=== PATIENT | female | born 1930 | race African-American/Black ===

== ENCOUNTER → 2017-12-03 | Outpatient (CLI) | payer OTHER | END | disposition home or self-care (01) | LOC: US 10:52 | DX: I65.21 Occlusion and stenosis of right carotid artery (principal); R09.89 Other specified symptoms and signs involving the circulatory and respiratory systems; R60.0 Localized edema | CPT/HCPCS: 93882; 93971 ==

== ENCOUNTER → 2017-12-13 | Outpatient (CLI) | payer OTHER ==
[2017-12-13] MEDS: REGADENOSON 0.4 MG/5 ML DISP.SYRIN. IV (10:05)
== END | disposition home or self-care (01) ==
LOC: NM 08:18
DX: R06.09 Other forms of dyspnea (principal); I73.9 Peripheral vascular disease, unspecified; I12.9 Hypertensive chronic kidney disease with stage 1 through stage 4 chronic kidney disease, or unspecified chronic kidney disease; N18.9 Chronic kidney disease, unspecified; Z99.2 Dependence on renal dialysis; Z88.0 Allergy status to penicillin
CPT/HCPCS: 78452; 93017; 93306; 96374; 96375; 96376; A9500; J2785

== ENCOUNTER 2017-12-16 08:16 | Observation (INO) | payer OTHER ==
[~2017-12-16 08:16] MED LIST: IODIXANOL 320 MG/ML 100 ML VIAL.
[2017-12-16 09:03] LABS: HEMATOCRIT 33.8 % (36.0-47.0); HEMOGLOBIN 11.1 g/dL (12.0-15.5); MEAN CORPUSCULAR HEMOGLOBIN 29 pg (25-35); MEAN CORPUSCULAR HGB CONC 33 g/dL (31-37); MEAN CORPUSCULAR VOLUME 88 fL (79-100); PLATELET COUNT 168 x10^3/uL (140-400); RED BLOOD COUNT 3.83 x10^6/uL (3.50-5.40); RED CELL DISTRIBUTION WIDTH 16.8 % (11.5-14.5); WHITE BLOOD COUNT 4.5 x10^3/uL (4.0-11.0)
[2017-12-16 09:14] LABS: ANION GAP 13 (6-14); BLOOD UREA NITROGEN 15 mg/dL (7-20); CALCIUM 9.6 mg/dL (8.5-10.1); CARBON DIOXIDE 23 mmol/L (21-32); CHLORIDE 109 mmol/L (98-107); CREATININE 1.2 mg/dL (0.6-1.0); GFR 51.7; GLUCOSE 92 mg/dL (70-99); POTASSIUM 3.9 mmol/L (3.5-5.1); SODIUM 145 mmol/L (136-145)
[2017-12-16 09:15] LABS: INR 1.2 (0.8-1.1); PARTIAL THROMBOPLASTIN TIME 28 SEC (24-38); PROTHROMBIN TIME PATIENT 14.3 SEC (11.7-14.0)
[2017-12-16] MEDS ORDERED: LIDOCAINE 2% 20 ML VIAL. (09:49)
[2017-12-16] MEDS ORDERED: fentaNYL PF VIAL 100 MCG/2 ML VIAL ×2 (10:09→10:58)
[2017-12-16] MEDS ORDERED: MIDAZOLAM HCL/PF 2 MG/2 ML VIAL. ×2 (10:09→10:59)
[2017-12-16] MEDS ORDERED: hydrALAZINE 20 MG/ML VIAL. (10:27)
[2017-12-16] MEDS ORDERED: HEPARIN for IV BOLUS 10,000 UNIT/10 ML VIAL. (10:43)
[2017-12-16] MEDS ORDERED: CONTRAST GIVEN MC (11:15)
[2017-12-16] MEDS ORDERED: CLOPIDOGREL BISULFATE 75 MG TABLET (11:20)
[2017-12-16] MEDS: CLOPIDOGREL BISULFATE 75 MG TABLET PO ×2 (11:33→14:48)
[2017-12-16] MEDS: IODIXANOL 320 MG/ML 100 ML VIAL. IART (11:34)
[2017-12-16] MEDS: LIDOCAINE 2% 20 ML VIAL. IJ (11:34)
[2017-12-16] MEDS: hydrALAZINE 20 MG/ML VIAL. IVP (11:35)
[2017-12-16] MEDS: HEPARIN for IV BOLUS 10,000 UNIT/10 ML VIAL. IV (11:36)
[2017-12-16] MEDS: fentaNYL PF VIAL 100 MCG/2 ML VIAL IV ×2 (11:37→13:45)
[2017-12-16] MEDS: MIDAZOLAM HCL/PF 2 MG/2 ML VIAL. IV (11:37)
[2017-12-16] MEDS ORDERED: MAGNESIUM HYDROXIDE 2,400 MG/30 ML ORAL.SUSP. PO (13:45)
[2017-12-16] MEDS: LABETALOL 20 MG/4 ML DISP.SYRIN. IVP ×2 (14:18→21:03)
[2017-12-16] MEDS: FERROUS SULFATE 325 MG TABLET. PO ×2 (15:00→21:03)
[2017-12-16] MEDS: amLODIPine BESYLATE 2.5 MG TABLET PO (15:00)
[2017-12-16] MEDS: ASPIRIN ENTERIC COATED 81 MG TABLET.DR. PO (15:00)
[2017-12-16] MEDS: METOPROLOL SUCC 24HR ER 50 MG TAB.ER.24H. PO (15:00)
[2017-12-16] MEDS: IV 1/2 NORMAL SALINE 1,000 ML IV (15:25)
[2017-12-16] MEDS: ENOXAPARIN 40 MG/0.4 ML SYRINGE. SQ (16:00)
[2017-12-16] MEDS: NYSTATIN 100,000 UNITS/ML 5 ML ORAL.SUSP. SWSW ×2 (16:37→21:02)
[2017-12-16] MEDS: ATORVASTATIN CALCIUM 20 MG TABLET PO (21:03)
[2017-12-17] MEDS: ACETAMINOPHEN 325 MG TABLET. PO (00:11)
[2017-12-17] MEDS: IV 1/2 NORMAL SALINE 1,000 ML IV ×2 (05:20→09:43)
[2017-12-17 05:29] LABS: ADD MAN DIFF? NO
[2017-12-17 05:42] LABS: BASO % 1 % (0-3); EOS # 0.1 x10^3/uL (0.0-0.7); EOS % 2 % (0-3); HEMATOCRIT 29.2 % (36.0-47.0); HEMOGLOBIN 9.8 g/dL (12.0-15.5); LYMPH # 0.8 x10^3/uL (1.0-4.8); LYMPH % 16 % (24-48); MEAN CORPUSCULAR HEMOGLOBIN 29 pg (25-35); MEAN CORPUSCULAR HGB CONC 33 g/dL (31-37); MEAN CORPUSCULAR VOLUME 88 fL (79-100); MONO # 0.5 x10^3/uL (0.0-1.1); MONO % 11 % (0-9); NEUT # 3.4 x10^3uL (1.8-7.7); NEUT % 71 % (31-73); PLATELET COUNT 147 x10^3/uL (140-400); RED BLOOD COUNT 3.33 x10^6/uL (3.50-5.40); RED CELL DISTRIBUTION WIDTH 17.2 % (11.5-14.5); WHITE BLOOD COUNT 4.8 x10^3/uL (4.0-11.0)
[2017-12-17 05:59] LABS: ALBUMIN 2.4 g/dL (3.4-5.0); ALBUMIN/GLOBULIN RATIO 0.6 (1.0-1.7); ALK PHOS 64 U/L (46-116); ALT (SGPT) 13 U/L (14-59); ANION GAP 9 (6-14); AST (SGOT) 17 U/L (15-37); BLOOD UREA NITROGEN 17 mg/dL (7-20); BUN/CREATININE RATIO 13 (6-20); CALCIUM 8.2 mg/dL (8.5-10.1); CARBON DIOXIDE 23 mmol/L (21-32); CHLORIDE 108 mmol/L (98-107); CREATININE 1.3 mg/dL (0.6-1.0); GFR 47.1; GLUCOSE 92 mg/dL (70-99); POTASSIUM 3.3 mmol/L (3.5-5.1); SODIUM 140 mmol/L (136-145); TOTAL BILIRUBIN 0.6 mg/dL (0.2-1.0); TOTAL PROTEIN 6.2 g/dL (6.4-8.2)
[2017-12-17] MEDS: CLOPIDOGREL BISULFATE 75 MG TABLET PO (10:20)
[2017-12-17] MEDS: ASPIRIN ENTERIC COATED 81 MG TABLET.DR. PO (10:21)
[2017-12-17] MEDS: FERROUS SULFATE 325 MG TABLET. PO (10:21)
[2017-12-17] MEDS: METOPROLOL SUCC 24HR ER 50 MG TAB.ER.24H. PO (10:21)
[2017-12-17] MEDS: amLODIPine BESYLATE 2.5 MG TABLET PO (10:21)
[2017-12-17] MEDS: NYSTATIN 100,000 UNITS/ML 5 ML ORAL.SUSP. SWSW ×2 (10:22→13:00)
[2017-12-17] MEDS: POTASSIUM CHLORIDE 20 MEQ TABLET.ER. PO (10:23)
[2017-12-17] MEDS ORDERED: ENOXAPARIN 30 MG/0.3 ML SYRINGE. SQ (16:00)
[2017-12-22] MEDS ORDERED: ERGOCALCIFEROL (VITAMIN D2) 50,000 UNIT CAPSULE. PO ×3 (09:00)
== END 2017-12-17 15:15 | disposition home or self-care (01) ==
LOC: CCL 08:16 → 2 SOUTH 11:45
DX: I73.9 Peripheral vascular disease, unspecified (principal); I71.4 Abdominal aortic aneurysm, without rupture; R06.09 Other forms of dyspnea; M16.11 Unilateral primary osteoarthritis, right hip; I12.9 Hypertensive chronic kidney disease with stage 1 through stage 4 chronic kidney disease, or unspecified chronic kidney disease; E78.5 Hyperlipidemia, unspecified; M19.90 Unspecified osteoarthritis, unspecified site; J44.9 Chronic obstructive pulmonary disease, unspecified; N18.9 Chronic kidney disease, unspecified; Z87.891 Personal history of nicotine dependence; Z86.79 Personal history of other diseases of the circulatory system
CPT/HCPCS: 36415; 37226; 75630; 80048; 80053; 85025; 85027; 85610; 85730; 96374; 96375; 96376; 99152; 99153; C1713; C1725; C1769; C1771; C1892; G0269; G0378; G0379; J0360; J1644; J2250; J3010; J3490

== ENCOUNTER → 2018-03-10 | Outpatient (CLI) | payer OTHER ==
[2018-03-11 22:20] LABS: MRSA BY PCR Negative (Negative)
== END | disposition home or self-care (01) ==
LOC: SURGPAT 12:29
DX: Z01.818 Encounter for other preprocedural examination (principal); I10 Essential (primary) hypertension
CPT/HCPCS: 36415; 71046; 87641; 93005

== ENCOUNTER 2018-04-01 12:28 | Inpatient (IN) | payer OTHER ==
[2018-04-01] MEDS: TRANEXAMIC ACID 1,000 MG in IV NS 50ML -- 2ND BAG INJ (08:00)
[~2018-04-01 12:28] MED LIST changes: -IODIXANOL 320 MG/ML 100 ML VIAL.; +LIDOCAINE 2% PF Vial for OR 5 ML VIAL.; +PROPOFOL 20 ML IV; +ROCURONIUM 50 MG/5 ML VIAL.; +fentaNYL PF VIAL 250 MCG/5 ML VIAL
[2018-04-01] MEDS: IV RINGERS,LACTATED 1000ML 1,000 ML IV (13:12)
[2018-04-01] MEDS: ACETAMINOPHEN 500 MG TABLET PO (13:17)
[2018-04-01] MEDS: CLINDAMYCIN 900MG PREMIX 50 ML IV ×2 (13:28→19:18)
[2018-04-01] MEDS ORDERED: MORPHINE SULFATE 4 MG/ML DISP.SYRIN. IV (13:45)
[2018-04-01] MEDS ORDERED: HYDROcodone/APAP 10/325 1 TAB TABLET PO (13:45)
[2018-04-01] MEDS ORDERED: DEXTROSE 50% 25 GM / 50ML DISP.SYRIN. IV (13:45)
[2018-04-01] MEDS ORDERED: traMADol 50 MG TABLET PO (13:45)
[2018-04-01] MEDS ORDERED: MORPHINE SULFATE 2 MG/ML DISP.SYRIN. IV (13:45)
[2018-04-01] MEDS ORDERED: ZOLPIDEM 5 MG TABLET. PO (13:45)
[2018-04-01] MEDS ORDERED: ACETAMINOPHEN 325 MG TABLET. PO (13:45)
[2018-04-01] MEDS ORDERED: 0.9 % SODIUM CHLORIDE 10 ML DISP.SYRIN. IV (13:45)
[2018-04-01] MEDS ORDERED: oxyCODONE/APAP 7.5/325 1 TAB TABLET PO (13:45)
[2018-04-01] MEDS ORDERED: diphenhydrAMINE 50 MG/ML VIAL IV (13:45)
[2018-04-01] MEDS ORDERED: HYDROcodone/APAP 7.5/325MG 1 TAB TABLET PO (13:45)
[2018-04-01] MEDS ORDERED: fentaNYL PF VIAL 100 MCG/2 ML VIAL IV (13:45)
[2018-04-01] MEDS: MORPHINE SULFATE 5 MG, KETOROLAC 30 MG, ROPIVacaine 0.5% PF 60 ML, EPINEPHrine 0.5 MG i... INT ART (13:46)
[2018-04-01] MEDS: TRANEXAMIC ACID 1,000 MG in IV NS 50ML -- 1ST BAG INJ (13:47)
[2018-04-01] MEDS ORDERED: NEOSTIGMINE METHYLSULFATE 5 MG/5 ML SYRINGE. (13:57)
[2018-04-01] MEDS ORDERED: ONDANSETRON PF 4 MG/2 ML VIAL. (13:57)
[2018-04-01] MEDS ORDERED: DEXAMETHASONE SOD PHOS 20 MG/5 ML VIAL. (13:57)
[2018-04-01] MEDS ORDERED: GLYCOPYRROLATE 1 MG/5 ML VIAL. (13:57)
[2018-04-01] MEDS ORDERED: hydrALAZINE 20 MG/ML VIAL. (14:20)
[2018-04-01] MEDS ORDERED: SEVOFLURANE 61 TO 120 MINUTES. IH (14:42)
[2018-04-01] MEDS ORDERED: PROPOFOL 20 ML IV (14:44)
[2018-04-01] MEDS ORDERED: ePHEDrine PF IN SALINE 50 MG/5 ML DISP.SYRIN IV (14:49)
[2018-04-01] MEDS ORDERED: fentaNYL PF VIAL 100 MCG/2 ML VIAL (15:53)
[2018-04-01] MEDS: fentaNYL PF VIAL 100 MCG/2 ML VIAL IV (15:59)
[2018-04-01] MEDS ORDERED: WARFARIN 7.5 MG TABLET. PO (16:00)
[2018-04-01 17:20] LABS: INR 1.1 (0.8-1.1); PROTHROMBIN TIME PATIENT 13.6 SEC (11.7-14.0)
[2018-04-01] MEDS: KETOROLAC 30 MG, BUPIVACAINE MPF 0.25% 20 ML, EPINEPHrine 0.5 MG in TOTAL VOLUME SYRING... INT ART (18:14)
[2018-04-01] MEDS: oxyCODONE/APAP 5/325 1 TAB TABLET PO ×2 (18:18→23:20)
[2018-04-01] MEDS: WARFARIN 5 MG TABLET. PO (18:18)
[2018-04-01] MEDS: FERROUS SULFATE 325 MG TABLET. PO (18:18)
[2018-04-01] MEDS: IV DEXTROSE 5 %-0.45 % NACL 1,000 ML IV (19:47)
[2018-04-01] MEDS: CELECOXIB 200 MG CAPSULE. PO (20:45)
[2018-04-01] MEDS ORDERED: FERROUS SULFATE 325 MG TABLET. PO (21:00)
[2018-04-02] MEDS: CLINDAMYCIN 900MG PREMIX 50 ML IV ×2 (01:16→06:53)
[2018-04-02] MEDS: KETOROLAC 30 MG, BUPIVACAINE MPF 0.25% 20 ML, EPINEPHrine 0.5 MG in TOTAL VOLUME SYRING... INT ART (05:29)
[2018-04-02] MEDS ORDERED: MAGNESIUM HYDROXIDE 2,400 MG/30 ML ORAL.SUSP. PO (06:00)
[2018-04-02 07:49] LABS: HEMATOCRIT 24.8 % (36.0-47.0); MEAN CORPUSCULAR HGB CONC 32 g/dL (31-37)
[2018-04-02] MEDS: CLOPIDOGREL BISULFATE 75 MG TABLET PO (08:19)
[2018-04-02] MEDS: FERROUS SULFATE 325 MG TABLET. PO ×2 (08:19→16:49)
[2018-04-02] MEDS: ASPIRIN ENTERIC COATED 81 MG TABLET.DR. PO (08:20)
[2018-04-02] MEDS: MULTIVITAMIN with MINERAL TABLET. PO (08:20)
[2018-04-02] MEDS: CELECOXIB 200 MG CAPSULE. PO ×2 (08:20→20:34)
[2018-04-02] MEDS: SENNOSIDES/DOCUSATE 8.6/50MG TABLET. PO (08:20)
[2018-04-02] MEDS: amLODIPine BESYLATE 5 MG TABLET PO (08:21)
[2018-04-02 08:22] LABS: INR 1.3 (0.8-1.1); PROTHROMBIN TIME PATIENT 15.5 SEC (11.7-14.0)
[2018-04-02] MEDS: METOPROLOL SUCC 24HR ER 50 MG TAB.ER.24H. PO (08:22)
[2018-04-02] MEDS: oxyCODONE/APAP 5/325 1 TAB TABLET PO ×3 (08:22→20:35)
[2018-04-02] MEDS ORDERED: BISACODYL 10 MG SUPP.RECT. PR (16:00)
[2018-04-02] MEDS: WARFARIN 5 MG TABLET. PO (16:50)
[2018-04-02] MEDS: ATORVASTATIN CALCIUM 20 MG TABLET PO (20:34)
[2018-04-03] MEDS: oxyCODONE/APAP 5/325 1 TAB TABLET PO ×2 (03:04→20:12)
[2018-04-03] MEDS: traMADol 50 MG TABLET PO (05:48)
[2018-04-03 06:02] LABS: HEMATOCRIT 22.6 % (36.0-47.0); HEMOGLOBIN 7.6 g/dL (12.0-15.5); MEAN CORPUSCULAR HGB CONC 34 g/dL (31-37)
[2018-04-03 07:46] LABS: INR 1.5 (0.8-1.1); PROTHROMBIN TIME PATIENT 17.9 SEC (11.7-14.0)
[2018-04-03] MEDS: CLOPIDOGREL BISULFATE 75 MG TABLET PO (08:00)
[2018-04-03] MEDS: FERROUS SULFATE 325 MG TABLET. PO ×2 (08:00→17:00)
[2018-04-03] MEDS: CALCIUM CARBONATE 500 MG TAB.CHEW PO (08:36)
[2018-04-03] MEDS: ASPIRIN ENTERIC COATED 81 MG TABLET.DR. PO (09:00)
[2018-04-03] MEDS: CELECOXIB 200 MG CAPSULE. PO ×2 (09:00→20:11)
[2018-04-03] MEDS: amLODIPine BESYLATE 5 MG TABLET PO (09:00)
[2018-04-03] MEDS: METOPROLOL SUCC 24HR ER 50 MG TAB.ER.24H. PO (09:00)
[2018-04-03] MEDS: MULTIVITAMIN with MINERAL TABLET. PO (09:00)
[2018-04-03] MEDS: SENNOSIDES/DOCUSATE 8.6/50MG TABLET. PO (09:00)
[2018-04-03] MEDS: PROCHLORPERAZINE 10 MG/2 ML VIAL. IV (11:42)
[2018-04-03] MEDS: WARFARIN 3 MG TABLET. PO (16:00)
[2018-04-03] MEDS: ATORVASTATIN CALCIUM 20 MG TABLET PO (20:11)
[2018-04-04 05:42] LABS: HEMATOCRIT 22.3 % (36.0-47.0); HEMOGLOBIN 7.5 g/dL (12.0-15.5); MEAN CORPUSCULAR HGB CONC 34 g/dL (31-37)
[2018-04-04 06:34] LABS: INR 2.5 (0.8-1.1); PROTHROMBIN TIME PATIENT 26.6 SEC (11.7-14.0)
[2018-04-04] MEDS: oxyCODONE/APAP 5/325 1 TAB TABLET PO ×2 (06:48→16:18)
[2018-04-04] MEDS: ASPIRIN ENTERIC COATED 81 MG TABLET.DR. PO (08:55)
[2018-04-04] MEDS: MULTIVITAMIN with MINERAL TABLET. PO (08:55)
[2018-04-04] MEDS: FERROUS SULFATE 325 MG TABLET. PO (08:55)
[2018-04-04] MEDS: CELECOXIB 200 MG CAPSULE. PO (08:55)
[2018-04-04] MEDS: CLOPIDOGREL BISULFATE 75 MG TABLET PO (08:55)
[2018-04-04] MEDS: amLODIPine BESYLATE 5 MG TABLET PO (08:58)
[2018-04-04] MEDS: SENNOSIDES/DOCUSATE 8.6/50MG TABLET. PO (09:00)
[2018-04-04] MEDS: METOPROLOL SUCC 24HR ER 50 MG TAB.ER.24H. PO (09:00)
[2018-04-04] MEDS: WARFARIN 1 MG TABLET. PO (16:00)
[2018-04-08] MEDS ORDERED: ERGOCALCIFEROL (VITAMIN D2) 50,000 UNIT CAPSULE. PO (09:00)
== END 2018-04-04 16:20 | DRG 470 ==
LOC: OPSVCIP 12:28 → 4 SOUTHEST 16:54
PROC: 0SR906Z Replacement of Right Hip Joint with Oxidized Zirconium on Polyethylene Synthetic Substitute, Open Approach (ICD-10-PCS; principal; 2018-04-01 13:17)
DX: M16.11 Unilateral primary osteoarthritis, right hip (principal); K59.00 Constipation, unspecified; D64.9 Anemia, unspecified; Z91.048 Other nonmedicinal substance allergy status; Z88.0 Allergy status to penicillin; Z96.641 Presence of right artificial hip joint; Z88.8 Allergy status to other drugs, medicaments and biological substances
CPT/HCPCS: 36415; 72170; 85014; 85018; 85610; 86850; 86900; 86901; 88304; 88311; 97116-GP; 97150-GP; 97162-GP; 97166-GO; 97530-GP; 97535-GO; A7015; C1713; J0171; J0360; J0780; J1100; J1885; J2001; J2270; J2405; J2704; J2710; J2795; J3010; J3490; J7030; J7120

== ENCOUNTER 2019-09-17 15:26 | Inpatient (IN) | payer OTHER ==
[~2019-09-17] VITALS: Ht 165.1 cm; Wt 41.3 kg
[~2019-09-17 15:26] MED LIST changes: +ACET325T9 PO; +AMLO2.5T5 PO; +ASPI-482 PO; +ATOR20TA58 PO; +CLON0.1T12 PO; +CLOP75TA PO; +DOCU-153 PO; +ERGO500027 PO; +FERR325T14 PO; +GLUC1CAP41 PO; +HYDR-2761 PO; -LIDOCAINE 2% PF Vial for OR 5 ML VIAL.; +LORA2ORA7 SL; +METO-239 PO; +MORP100S3 SL; +NYST100054 PO; -PROPOFOL 20 ML IV; -ROCURONIUM 50 MG/5 ML VIAL.; -fentaNYL PF VIAL 250 MCG/5 ML VIAL
[2019-09-17] MEDS ORDERED: LORazepam INTENSOL 2 MG/ML ORAL.CONC SL PRN (15:45)
[2019-09-17] MEDS ORDERED: DOCUSATE SODIUM 100 MG CAPSULE. PO PRN (15:45)
[2019-09-17] MEDS ORDERED: ACETAMINOPHEN 325 MG TABLET. PO PRN (15:45)
[2019-09-17 19:00] VITALS: BP 181/101
[2019-09-17] MEDS: MORPHINE SULFATE 20 MG/ML CONC SOLUTION. SL SCH (21:53)
[2019-09-17 23:36] VITALS: BP 136/89
[2019-09-18 03:00] VITALS: BP 150/97
[2019-09-18] MEDS: MORPHINE SULFATE 20 MG/ML CONC SOLUTION. SL SCH ×3 (05:51→22:00)
[2019-09-18 08:00] VITALS: BP 164/92
[2019-09-18] MEDS: METOPROLOL SUCC 24HR ER 50 MG TAB.ER.24H. PO SCH (09:09)
[2019-09-18] MEDS: amLODIPine BESYLATE 10 MG TABLET PO SCH (09:09)
--- NOTE | 2019-09-18 09:30 | PDOC1 ---
History and Physical Date of Admission Date of Admission DATE: 09/18/19 TIME: Identification/Chief Complaint Chief Complaint Abdominal Pain Source Source: Patient History of Present Illness History of Present Illness Ms Andino is an 88 yo F w/ PMHx HTN, COPD, CKD, AAA who presents with intractable abdominal pain. Was active with hospice in [place] and family has brought her back home for the holidays. Initially had intractable abdominal pain which improved with scheduled morphine. Abdominal US reveals that proximally, the abdominal aorta measures 3.2 x 2.8 cm. In its midportion, 8.1 x 5.9 cm. Distally, at least 4.9 x 3.8 cm. Changes of endovascular repair are suspected. The iliac bifurcation is not well visualized. She does not recall meeting me yesterday and every few minutes asks why she is here in the hospital. Her only complaint today is that both feet are cold. No numbness or tingling Past Medical History Cardiovascular: HTN, Other Pulmonary: COPD Musculoskeletal: Osteoarthritis Renal/: Chronic renal insuff, Chronic renal failure Past Surgical History Past Surgical History: Other Family History Family History: Heart Disease Family History: Parent Social History Smoke: Quit ALCOHOL: none Drugs: None Current Medications Current Medications Current Medications Morphine Sulfate (Roxanol Conc) 5 mg PRN Q1HR PRN SL SOA/MOD-SEVERE PAIN; Start 09/17/19 at 15:45 Acetaminophen (Tylenol) 650 mg PRN Q4HRS PRN PO MILD PAIN / TEMP; Start 09/17/19 at 15:45 Clonidine HCl (Catapres) 0.1 mg PRN Q6HRS PRN PO HTN; Start 09/17/19 at 15:45 Docusate Sodium (Colace) 100 mg PRN BID PRN PO CONSTIPATION Last administered on 09/18/19at 09:09; Start 09/17/19 at 15:45 Lorazepam (Ativan Intensol) 1 mg PRN Q2HR PRN SL ANXIETY / AGITATION; Start 09/17/19 at 15:45 Morphine Sulfate (Roxanol Conc) 15 mg Q8HRS SL Last administered on 09/18/19at 05:51; Start 09/17/19 at 22:00 Metoprolol Succinate (Toprol Xl) 50 mg DAILY PO Last administered on 09/18/19at 09:09; Start 12/27/19 at 09:00 Amlodipine Besylate (Norvasc) 10 mg DAILY PO Last administered on 09/18/19at 0 9:09; Start 09/18/19 at 09:00 Active Scripts Active Dok (Docusate Sodium) 100 Mg Capsule 100 Mg PO PRN BID PRN 30 Days Morphine Sulfate 100 Mg/5 Ml Solution 5 Mg SL PRN Q1HR PRN 30 Days Morphine Sulfate 100 Mg/5 Ml Solution 15 Mg SL Q8HRS 30 Days Tylenol (Acetaminophen) 325 Mg Tablet 650 Mg PO PRN Q4HRS PRN 30 Days Lorazepam Intensol (Lorazepam) 2 Mg/1 Ml Oral.conc 1 Mg SL PRN Q2HR PRN 30 Days Catapres (Clonidine Hcl) 0.1 Mg Tablet 0.1 Mg PO PRN Q6HRS PRN 30 Days Amlodipine Besylate 2.5 Mg Tablet 10 Mg PO DAILY 30 Days Reported Metoprolol Succinate ( Xl ) (Metoprolol Succinate) 25 Mg Tab.er.24h 2 Tab PO DAILY Allergies Allergies: Coded Allergies: Penicillins (Verified Allergy, Mild, N/V, 04/07/18) nickel (Verified Adverse Reaction, Intermediate, Rash, 04/07/18) ROS General: No: Chills, Night Sweats, Fatigue, Malaise, Appetite, Other PSYCHOLOGICAL ROS: No: Anxiety, Behavioral Disorder, Concentration difficultie, Decreased libido, Depression, Disorientation, Hallucinations, Hostility, Irritablity, Memory difficulties, Mood Swings, Obsessive thoughts, Physical abuse, Sexual abuse, Sleep disturbances, Suicidal ideation, Other Eyes: No Blurry vision, No Decreased vision, No Double vision, No Dry eyes, No Excessive tearing, No Eye Pain, No Itchy Eyes, No Loss of vision, No Photophobia, No Scotomata, No Uses contacts, No Uses glasses, No Other HEENT: No: Heacaches, Visual Changes, Hearing change, Nasal congestion, Nasal discharge, Oral lesions, Sinus pain, Sore Throat, Epistaxis, Sneezing, Snoring, Tinnitus, Vertigo, Vocal changes, Other ALLERGY AND IMMUNOLOGY: No: Hives, Insect Bite Sensitivity, Itchy/Watery Eyes, Nasal Congestion, Post Nasal Drip, Seasonal Allergies, Other Hematological and Lymphatic: No: Bleeding Problems, Blood Clots, Blood Transfusions, Brusing, Night Sweats, Pallor, Swollen Lymph Nodes, Other ENDOCRINE: No: Breast Changes, Galactorrhea, Hair Pattern Changes, Hot Flashes, Malaise/lethargy, Mood Swings, Palpitations, Polydipsia/polyuria, Skin Changes, Temperature Intolerance, Unexpected Weight Changes, Other Breast: No New/Changing Breast Lumps, No Nipple changes, No Nipple discharge, No Other Respiratory: No: Cough, Hemoptysis, Orthopnea, Pleuritic Pain, Shortness of breath, SOB with excertion, Sputum Changes, Stridor, Tachypnea, Wheezing, Other Cardiovascular: No Chest Pain, No Palpitations, No Orthopnea, No Paroxysmal Noc. Dyspnea, No Edema, No Lt Headedness, No Other Gastrointestinal: No Nausea, No Vomiting, No Abdominal Pain, No Diarrhea, No Constipation, No Melena, No Hematochezia, No Other Genitourinary: No Dysuria, No Frequency, No Incontinence, No Hematuria, No Retention, No Discharge, No Urgency, No Pain, No Flank Pain, No Other, No , No , No , No , No , No , No Musculoskeletal: Yes Gait Disturbance; No Joint Pain, No Joint Stiffness, No Joint Swelling, No Muscle Pain, No Muscular Weakness, No Pain In:, No Swelling In:, No Other Neurological: Yes Gait Disturbance; No Behavorial Changes, No Bowel/Bladder ControlChng, No Confusion, No Dizziness, No Headaches, No Impaired Coord/balance, No Memory Loss, No Numbness/Tingling, No Seizures, No Speech Problems, No Tremors, No Visual Changes, No Weakness, No Other Skin: No Dry Skin, No Eczema, No Hair Changes, No Lumps, No Mole Changes, No Mottling, No Nail Changes, No Pruritus, No Rash, No Skin Lesion Changes, No Other, No Acne Physical Exam General: Alert, Cooperative, No acute distress HEENT: Atraumatic, PERRLA, EOMI, Mucous membr. moist/pink Lungs: Clear to auscultation, Normal air movement Heart: S1S2, RRR, no thrills, no rubs Abdomen: Normal bowel sounds, Soft, No tenderness, No hepatosplenomegaly, Other (pulastile mass, loud bruit) Extremities: No clubbing, No cyanosis, No edema, Normal pulses, No tenderness/swelling Skin: No rashes, No breakdown, No significant lesion Neuro: Normal speech, Strength at 5/5 X4 ext, Normal tone, Sensation intact, Cranial nerves 3-12 NL, Reflexes 2+ Psych/Mental Status: Other (Confused, pleasantly so) Vitals Vitals Vital Signs Date Time Temp Pulse Resp B/P (MAP) Pulse Ox O2 Delivery O2 Flow Rate FiO2 09/18/19 09:09 58 164/92 09/18/19 08:00 98.1 16 91 Room Air 98.1 VTE Prophylaxis Ordered VTE Prophylaxis Devices: Yes VTE Pharmacological Prophylaxi: No Assessment/Plan Assessment/Plan A/P: Large infrarenal abdominal aortic aneurysm measuring up to 8.1 cm - has been told in [place] at [facility] this is high risk for surgery. I have counseled the family this is accurate. BP control. [facility] C[facility], COMFORT MEASURES Abdominal pain - improved with scheduled and prn morphine Anemia - of chronic renal disease Renal insufficiency - stable Hypertensive urgency - symptomatically controlled symptoms with BP control FEN - General diet PPX - SCDs DNR/DNI Dispo - inpatient hospice care. She is stable, may be transferred to IPU vs SNF hospice vs home hospice, though family state she failed home hospice in [place] 35 MIN PT EXAM, CHART REVIEW, > 50% OF TIME SPENT WITH EXAM, CHART REVIEW, PT CARE COORDINATION RUDDY BARRY MD Sep 18, 2019 09:30
[2019-09-18 20:00] VITALS: BP 152/73
[2019-09-19] MEDS: MORPHINE SULFATE 20 MG/ML CONC SOLUTION. SL SCH ×3 (06:00→22:00)
[2019-09-19 08:00] VITALS: BP 174/103
--- NOTE | 2019-09-19 08:46 | PDOC ---
PROGRESS NOTES Chief Complaint Chief Complaint A/P: Large infrarenal abdominal aortic aneurysm measuring up to 8.1 cm - has been told in [place] at [facility] this is high risk for surgery. I have counseled the family this is accurate. BP control. [facility] C[facility], COMFORT MEASURES Abdominal pain - improved with scheduled and prn morphine Anemia - of chronic renal disease Renal insufficiency - stable Hypertensive urgency - symptomatically controlled symptoms with BP control FEN - General diet PPX - SCDs DNR/DNI Dispo - inpatient hospice care. She is stable, may be transferred to IPU vs SNF hospice vs home hospice, though family state she failed home hospice in [place] History of Present Illness History of Present Illness Ms Andino is an 88 yo F w/ PMHx HTN, COPD, CKD, AAA who presents with intractable abdominal pain. Was active with hospice in [place] and family has brought her back home for the holidays. Initially had intractable abdominal pain which improved with scheduled morphine. Abdominal US reveals that proximally, the abdominal aorta measures 3.2 x 2.8 cm. In its midportion, 8.1 x 5.9 cm. Distally, at least 4.9 x 3.8 cm. Changes of endovascular repair are suspected. The iliac bifurcation is not well visualized. She does not recall meeting me yesterday and every few minutes asks why she is here in the hospital. Her only complaint today is that both feet are cold. No numbness or tingling. BP better controlled. No Chest pain or SOB Vitals Vitals Vital Signs Date Time Temp Pulse Resp B/P (MAP) Pulse Ox O2 Delivery O2 Flow Rate FiO2 09/19/19 07:00 20 Room Air 09/18/19 20:00 98.4 76 152/73 (99) 97 98.4 Physical Exam General: Alert, Cooperative, No acute distress Lungs: Clear, Other Abdomen: Normal bowel sounds, Soft, No tenderness, No hepatosplenomegaly, Other (pulastile mass, loud bruit) Extremities: No clubbing, No cyanosis, No edema, Normal pulses, No tenderness/s welling Skin: No rashes, No breakdown, No significant lesion Comment Review of Relevant I have reviewed the following items erick (where applicable) has been applied. Medications Current Medications Morphine Sulfate (Roxanol Conc) 5 mg PRN Q1HR PRN SL SOA/MOD-SEVERE PAIN; Start 09/17/19 at 15:45 Acetaminophen (Tylenol) 650 mg PRN Q4HRS PRN PO MILD PAIN / TEMP; Start 09/17/19 at 15:45 Clonidine HCl (Catapres) 0.1 mg PRN Q6HRS PRN PO HTN; Start 09/17/19 at 15:45 Docusate Sodium (Colace) 100 mg PRN BID PRN PO CONSTIPATION Last administered on 09/18/19at 09:09; Start 09/17/19 at 15:45 Lorazepam (Ativan Intensol) 1 mg PRN Q2HR PRN SL ANXIETY / AGITATION; Start 09/17/19 at 15:45 Morphine Sulfate (Roxanol Conc) 15 mg Q8HRS SL Last administered on 09/18/19at 14:17; Start 09/17/19 at 22:00 Metoprolol Succinate (Toprol Xl) 50 mg DAILY PO Last administered on 09/18/19at 09:09; Start 09/18/19 at 09:00 Amlodipine Besylate (Norvasc) 10 mg DAILY PO Last administered on 09/18/19at 09:09; Start 09/18/19 at 09:00 Active Scripts Active Dok (Docusate Sodium) 100 Mg Capsule 100 Mg PO PRN BID PRN 30 Days Morphine Sulfate 100 Mg/5 Ml Solution 5 Mg SL PRN Q1HR PRN 30 Days Morphine Sulfate 100 Mg/5 Ml Solution 15 Mg SL Q8HRS 30 Days Tylenol (Acetaminophen) 325 Mg Tablet 650 Mg PO PRN Q4HRS PRN 30 Days Lorazepam Intensol (Lorazepam) 2 Mg/1 Ml Oral.conc 1 Mg SL PRN Q2HR PRN 30 Days Catapres (Clonidine Hcl) 0.1 Mg Tablet 0.1 Mg PO PRN Q6HRS PRN 30 Days Amlodipine Besylate 2.5 Mg Tablet 10 Mg PO DAILY 30 Days Reported Metoprolol Succinate ( Xl ) (Metoprolol Succinate) 25 Mg Tab.er.24h 2 Tab PO DAILY Vitals/I & O Vital Sign - Last 24 Hours 09/18/19 09/18/19 09/18/19 09/18/19 09:09 09:09 16:32 20:00 Temp 98.4 98.4 Pulse 58 58 76 Resp 18 B/P (MAP) 164/92 164/92 152/73 (99) Pulse Ox 98 97 O2 Delivery Room Air Room Air 09/18/19 09/18/19 09/19/19 09/19/19 20:00 22:00 06:00 07:00 Resp 18 18 20 O2 Delivery Room Air Room Air Room Air Room Air Intake and Output 09/18/19 09/18/19 09/19/19 15:00 23:00 07:00 Intake Total 250 ml 120 ml 50 ml Output Total 0 ml Balance 250 ml 120 ml 50 ml RUDDY BARRY MD Sep 19, 2019 08:46
[2019-09-19] MEDS: METOPROLOL SUCC 24HR ER 50 MG TAB.ER.24H. PO SCH (08:57)
[2019-09-19] MEDS: amLODIPine BESYLATE 10 MG TABLET PO SCH (08:57)
[2019-09-19 10:45] VITALS: BP 136/75
[2019-09-19 19:00] VITALS: BP 136/86
[2019-09-20] MEDS: MORPHINE SULFATE 20 MG/ML CONC SOLUTION. SL SCH ×3 (06:00→21:03)
[2019-09-20 07:46] VITALS: BP 155/88
[2019-09-20] MEDS: amLODIPine BESYLATE 10 MG TABLET PO SCH (09:08)
[2019-09-20] MEDS: METOPROLOL SUCC 24HR ER 50 MG TAB.ER.24H. PO SCH (09:08)
--- NOTE | 2019-09-20 09:09 | PDOC ---
PROGRESS NOTES Chief Complaint Chief Complaint A/P: Large infrarenal abdominal aortic aneurysm measuring up to 8.1 cm - has been told in [place] at [facility] this is high risk for surgery. I have counseled the family this is accurate. BP control. [facility] C[facility], COMFORT MEASURES Abdominal pain - improved with scheduled and prn morphine Anemia - of chronic renal disease Renal insufficiency - stable Hypertensive urgency - symptomatically controlled symptoms with BP control FEN - General diet PPX - SCDs DNR/DNI Dispo - inpatient hospice care. She is stable, may be transferred to IPU vs SNF hospice vs home hospice, though family state she failed home hospice in [place] History of Present Illness History of Present Illness Ms Andino is an 88 yo F w/ PMHx HTN, COPD, CKD, AAA who presents with intractable abdominal pain. Was active with hospice in [place] and family has brought her back home for the holidays. Initially had intractable abdominal pain which improved with scheduled morphine. Abdominal US reveals that proximally, the abdominal aorta measures 3.2 x 2.8 cm. In its midportion, 8.1 x 5.9 cm. Distally, at least 4.9 x 3.8 cm. Changes of endovascular repair are suspected. The iliac bifurcation is not well visualized. 09/19: She does not recall meeting me yesterday and every few minutes asks why she is here in the hospital. Her only complaint today is that both feet are cold. No numbness or tingling. BP better controlled. No Chest pain or SOB She is drowsy today. No pain complaints. Still a bit cold. BP controlled. No CP or SOB Vitals Vitals Vital Signs Date Time Temp Pulse Resp B/P (MAP) Pulse Ox O2 Delivery O2 Flow Rate FiO2 09/20/19 07:46 98.2 88 16 155/88 (110) 98 Room Air 98.2 Physical Exam General: Alert, Cooperative, No acute distress Lungs: Clear, Other Abdomen: Normal bowel sounds, Soft, No tenderness, No hepatosplenomegaly, Other (pulastile mass, loud bruit) Extremities: No clubbing, No cyanosis, No edema, Normal pulses, No tenderness/swelling Skin: No rashes, No breakdown, No significant lesion Comment Review of Relevant I have reviewed the following items erick (where applicable) has been applied. Medications Current Medications Morphine Sulfate (Roxanol Conc) 5 mg PRN Q1HR PRN SL SOA/MOD-SEVERE PAIN; Start 09/17/19 at 15:45 Acetaminophen (Tylenol) 650 mg PRN Q4HRS PRN PO MILD PAIN / TEMP; Start 09/17/19 at 15:45 Clonidine HCl (Catapres) 0.1 mg PRN Q6HRS PRN PO HTN; Start 09/17/19 at 15:45 Docusate Sodium (Colace) 100 mg PRN BID PRN PO CONSTIPATION Last administered on 09/18/19at 09:09; Start 09/17/19 at 15:45 Lorazepam (Ativan Intensol) 1 mg PRN Q2HR PRN SL ANXIETY / AGITATION; Start 09/17/19 at 15:45 Morphine Sulfate (Roxanol Conc) 15 mg Q8HRS SL Last administered on 09/19/19at 14:01; Start 09/17/19 at 22:00 Metoprolol Succinate (Toprol Xl) 50 mg DAILY PO Last administered on 09/19/19at 08:57; Start 09/18/19 at 09:00 Amlodipine Besylate (Norvasc) 10 mg DAILY PO Last administered on 09/19/19at 08:57; Start 09/18/19 at 09:00 Active Scripts Active Dok (Docusate Sodium) 100 Mg Capsule 100 Mg PO PRN BID PRN 30 Days Morphine Sulfate 100 Mg/5 Ml Solution 5 Mg SL PRN Q1HR PRN 30 Days Morphine Sulfate 100 Mg/5 Ml Solution 15 Mg SL Q8HRS 30 Days Tylenol (Acetaminophen) 325 Mg Tablet 650 Mg PO PRN Q4HRS PRN 30 Days Lorazepam Intensol (Lorazepam) 2 Mg/1 Ml Oral.conc 1 Mg SL PRN Q2HR PRN 30 Days Catapres (Clonidine Hcl) 0.1 Mg Tablet 0.1 Mg PO PRN Q6HRS PRN 30 Days Amlodipine Besylate 2.5 Mg Tablet 10 Mg PO DAILY 30 Days Reported Metoprolol Succinate ( Xl ) (Metoprolol Succinate) 25 Mg Tab.er.24h 2 Tab PO DAILY Vitals/I & O Vital Sign - Last 24 Hours 09/19/19 09/19/19 09/19/19 09/19/19 10:45 14:01 15:15 19:00 Temp 100.3 100.3 Pulse 83 80 Resp 16 18 B/P (MAP) 136/75 (95) 136/86 (103) Pulse Ox 95 96 O2 Delivery Room Air Room Air Room Air Room Air 09/19/19 09/20/19 20:21 07:46 Temp 98.2 98.2 Pulse 88 Resp 16 B/P (MAP) 155/88 (110) Pulse Ox 98 O2 Delivery Room Air Room Air Intake and Output 09/19/19 09/19/19 09/20/19 15:00 23:00 07:00 Intake Total 100 ml Balance 100 ml RUDDY BARRY MD Sep 20, 2019 09:08
[2019-09-20] MEDS: MORPHINE SULFATE 20 MG/ML CONC SOLUTION. SL PRN (16:54)
[2019-09-20 19:00] VITALS: BP 163/92
[2019-09-20] MEDS: cloNIDine HCL 0.1 MG TABLET PO PRN (21:04)
[2019-09-21] MEDS: MORPHINE SULFATE 20 MG/ML CONC SOLUTION. SL PRN (03:49)
[2019-09-21] MEDS: MORPHINE SULFATE 20 MG/ML CONC SOLUTION. SL SCH ×3 (05:33→22:00)
--- NOTE | 2019-09-21 07:59 | NUR ---
Vitals: NORBERTO Ritter went to pt's room to get vitals, per Riya pt told her to "shut up and sit down". Riya will try again later to obtain vital signs. Will continue to monitor.
--- NOTE | 2019-09-21 08:23 | PDOC ---
PROGRESS NOTES Chief Complaint Chief Complaint A/P: Large infrarenal abdominal aortic aneurysm measuring up to 8.1 cm - has been told in [place] at [facility] this is high risk for surgery. I have counseled the family this is accurate. BP control. [facility] C[facility], COMFORT MEASURES Abdominal pain - improved with scheduled and prn morphine Anemia - of chronic renal disease Renal insufficiency - stable Hypertensive urgency - symptomatically controlled symptoms with BP control FEN - General diet PPX - SCDs DNR/DNI Dispo - inpatient hospice care. She is stable, may be transferred to I[facility] vs SNF hospice vs home hospice, though family state she failed home hospice in [place] History of Present Illness History of Present Illness Ms Andino is an 88 yo F w/ PMHx HTN, COPD, CKD, AAA who presents with intractable abdominal pain. Was active with hospice in [place] and family has brought her back home for the holidays. Initially had intractable abdominal pain which improved with scheduled morphine. Abdominal US reveals that proximally, the abdominal aorta measures 3.2 x 2.8 cm. In its midportion, 8.1 x 5.9 cm. Distally, at least 4.9 x 3.8 cm. Changes of endovascular repair are suspected. The iliac bifurcation is not well visualized. 09/19: She does not recall meeting me yesterday and every few minutes asks why she is here in the hospital. Her only complaint today is that both feet are cold. No numbness or tingling. BP better controlled. No Chest pain or SOB She is drowsy today. No pain complaints. Still a bit cold. BP controlled. No CP or SOB Vitals Vitals Vital Signs Date Time Temp Pulse Resp B/P (MAP) Pulse Ox O2 Delivery O2 Flow Rate FiO2 09/21/19 06:39 18 98 Room Air 09/20/19 21:04 92 163/92 09/20/19 19:00 97.7 97.7 Physical Exam General: Alert, Cooperative, No acute distress Lungs: Clear, Other Abdomen: Normal bowel sounds, Soft, No tenderness, No hepatosplenomegaly, Other (pulastile mass, loud bruit) Extremities: No clubbing, No cyanosis, No edema, Normal pulses, No tenderness/swelling Skin: No rashes, No breakdown, No significant lesion Comment Review of Relevant I have reviewed the following items erick (where applicable) has been applied. Medications Current Medications Morphine Sulfate (Roxanol Conc) 5 mg PRN Q1HR PRN SL SOA/MOD-SEVERE PAIN Last administered on 09/21/19 03:49; Start 09/17/19 at 15:45 Acetaminophen (Tylenol) 650 mg PRN Q4HRS PRN PO MILD PAIN / TEMP; Start 09/17/19 at 15:45 Clonidine HCl (Catapres) 0.1 mg PRN Q6HRS PRN PO HTN Last administered on 09/20/19at 21:04; Start 09/17/19 at 15:45 Docusate Sodium (Colace) 100 mg PRN BID PRN PO CONSTIPATION Last administered on 09/18/19 09:09; Start 09/17/19 at 15:45 Lorazepam (Ativan Intensol) 1 mg PRN Q2HR PRN SL ANXIETY / AGITATION; Start 09/17/19 at 15:45 Morphine Sulfate (Roxanol Conc) 15 mg Q8HRS SL Last administered on 09/21/19 05:33; Start 09/17/19 at 22:00 Metoprolol Succinate (Toprol Xl) 50 mg DAILY PO Last administered on 09/20/19 09:08; Start 09/18/19 at 09:00 Amlodipine Besylate (Norvasc) 10 mg DAILY PO Last administered on 09/20/19 09:08; Start 09/18/19 at 09:00 Active Scripts Active Dok (Docusate Sodium) 100 Mg Capsule 100 Mg PO PRN BID PRN 30 Days Morphine Sulfate 100 Mg/5 Ml Solution 5 Mg SL PRN Q1HR PRN 30 Days Morphine Sulfate 100 Mg/5 Ml Solution 15 Mg SL Q8HRS 30 Days Tylenol (Acetaminophen) 325 Mg Tablet 650 Mg PO PRN Q4HRS PRN 30 Days Lorazepam Intensol (Lorazepam) 2 Mg/1 Ml Oral.conc 1 Mg SL PRN Q2HR PRN 30 Days Catapres (Clonidine Hcl) 0.1 Mg Tablet 0.1 Mg PO PRN Q6HRS PRN 30 Days Amlodipine Besylate 2.5 Mg Tablet 10 Mg PO DAILY 30 Days Reported Metoprolol Succinate ( Xl ) (Metoprolol Succinate) 25 Mg Tab.er.24h 2 Tab PO DAILY Vitals/I & O Vital Sign - Last 24 Hours 09/20/19 09/20/19 09/20/1909/20/19 09:08 09:08 14:28 15:28 Pulse 88 88 B/P (MAP) 155/88 155/88 O2 Delivery Room Air Room Air 09/20/19 09/20/19 09/20/19 09/20/19 16:54 17:59 19:00 20:02 Temp 97.7 97.7 Pulse 92 Resp 16 B/P (MAP) 163/92 (115) Pulse Ox 98 O2 Delivery Room Air Room Air Room Air Room Air 09/20/19 09/20/19 09/20/19 09/21/19 21:03 21:04 21:50 03:49 Pulse 92 Resp 16 16 18 B/P (MAP) 163/92 Pulse Ox 98 98 98 O2 Delivery Room Air Room Air Room Air 09/21/19 09/21/19 09/21/19 04:42 05:33 06:39 Resp 16 16 18 Pulse Ox 98 98 98 O2 Delivery Room Air Room Air Room Air Intake and Output 09/20/19 09/20/19 09/21/19 15:00 23:00 07:00 Intake Total 180 ml 0 ml Balance 180 ml 0 ml RUDDY BARRY MD Sep 21, 2019 08:23
[2019-09-21 11:00] VITALS: BP 172/94
[2019-09-21] MEDS: amLODIPine BESYLATE 10 MG TABLET PO SCH (11:17)
[2019-09-21] MEDS: METOPROLOL SUCC 24HR ER 50 MG TAB.ER.24H. PO SCH (11:18)
[2019-09-21] MEDS: cloNIDine HCL 0.1 MG TABLET PO PRN (11:18)
--- NOTE | 2019-09-21 14:04 | NUR ---
1400 Roxanol: pt stated her pain is 0/10. Pt states she does not need pain med at this time, she is aware she can get pain medication PRN and will let the nursing team know if she has pain.
[2019-09-21 19:00] VITALS: BP 165/78
[2019-09-22] MEDS: MORPHINE SULFATE 20 MG/ML CONC SOLUTION. SL SCH (06:00)
[2019-09-22 07:00] VITALS: BP 148/87
[2019-09-22 08:52] VITALS: BP 148/87
[2019-09-22] MEDS: METOPROLOL SUCC 24HR ER 50 MG TAB.ER.24H. PO SCH (08:52)
[2019-09-22] MEDS: amLODIPine BESYLATE 10 MG TABLET PO SCH (08:52)
--- NOTE | 2019-09-22 13:02 | NUR ---
SW notified by RN pt was transferring to [facility]-arranged by Toma. [facility]D provided packet for RN. RN to fax orders to [facility].
--- NOTE | 2019-09-22 14:55 | NUR ---
report given to staff at [facility]. Pt discharged via secure transport accompanied by daughter. pt stable upon dc. pt had no iv access.
== END 2019-09-22 14:57 | DRG 305 ==
LOC: 5 SOUTH 15:26
PROVIDERS: ADMIT Family Medicine; ATTEND Family Medicine
DX: I16.0 Hypertensive urgency (principal); D64.9 Anemia, unspecified; I12.9 Hypertensive chronic kidney disease with stage 1 through stage 4 chronic kidney disease, or unspecified chronic kidney disease; I71.4 Abdominal aortic aneurysm, without rupture; J44.9 Chronic obstructive pulmonary disease, unspecified; N18.9 Chronic kidney disease, unspecified; Z51.5 Encounter for palliative care; Z66 Do not resuscitate; M19.90 Unspecified osteoarthritis, unspecified site; Z88.0 Allergy status to penicillin; Z88.8 Allergy status to other drugs, medicaments and biological substances
CPT/HCPCS: 94760; G0378